=== PATIENT | female | born 1980 | race Caucasian/White ===

== ENCOUNTER 2023-11-04 09:13 | Emergency (ER) | payer MEDICAID ==
[~2023-11-04] VITALS: Ht 160 cm; Wt 65.8 kg
[2023-11-04 09:17] VITALS: BP 150/82; PULSE 99; RESP 16; O2SAT 99
[2023-11-04] MEDS: acetaminophen 325mg tablet PO ONE (09:57)
[2023-11-04 10:00] VITALS: TEMP 97.7
== END 2023-11-04 10:05 | disposition home or self-care (01) ==
LOC: ER 09:13
DX: R51.9 Headache, unspecified (principal); F17.200 Nicotine dependence, unspecified, uncomplicated
CPT/HCPCS: 99282

== ENCOUNTER 2023-11-04 11:18 | Emergency (ER) | payer MEDICAID ==
[~2023-11-04] VITALS: Ht 167.6 cm; Wt 66.2 kg
[2023-11-04 11:19] VITALS: BP 135/77; PULSE 107; RESP 16; O2SAT 96
[2023-11-04] MEDS ORDERED: haloperidol lactate 5mg/ml inj IM ONE (12:05)
[2023-11-04] MEDS ORDERED: diphenhydrAMINE 50 mg/ml inj IV ONE (12:05)
[2023-11-04] MEDS ORDERED: LORazepam 2 mg/ml vial IM ONE (12:05)
[2023-11-04 12:13] VITALS: TEMP 98.6
[2023-11-04] MEDS: olanzapine 10mg tablet PO STA (12:13)
== END 2023-11-04 12:21 | disposition home or self-care (01) ==
LOC: ER 11:18
DX: R44.0 Auditory hallucinations (principal); Z59.00 Homelessness unspecified
CPT/HCPCS: 99283